=== PATIENT | male | born 1960 | race Caucasian/White ===

== ENCOUNTER → 2020-02-06 | Outpatient (CLI) | payer OTHER ==
[~2020-02-06] MED LIST: ALPR.5 PO; AMLO5 PO; ASPI81CH PO; CETI5 PO; CITA20 PO; DIPATR PO; DULO60 PO; HYDACE10 PO; KETO10 PO; LISI20 PO; METF500 PO; Pravachol40 MG PO; TEMA30 PO; TIZA4 PO; TRAZ50 PO
== END | disposition home or self-care (01) ==
LOC: PLD 15:01 → LAB SHORT 15:01
DX: D48.5 Neoplasm of uncertain behavior of skin (principal)
CPT/HCPCS: 88305

== ENCOUNTER → 2020-08-27 | Outpatient (CLI) | payer OTHER | END | disposition home or self-care (01) | LOC: LAB SHORT 14:55 → LAB 14:55 | DX: L01.02 Bockhart's impetigo (principal); R23.4 Changes in skin texture | CPT/HCPCS: 88305; 88312 ==